=== PATIENT | male | born 1945 | race Two or more races ===

== ENCOUNTER 2018-05-30 15:55 | Emergency (ER) | payer OTHER ==
[~2018-05-30] VITALS: Ht 167.6 cm; Wt 104.3 kg
[2018-05-30] MEDS ORDERED: GLIPIZIDE ER5 MG (16:07)
[2018-05-30] MEDS ORDERED: METFORMIN HCL500 MG PO (16:07)
== END 2018-05-30 23:31 | disposition home or self-care (01) ==
LOC: ER 15:55
DX: J44.9 Chronic obstructive pulmonary disease, unspecified (principal); R06.02 Shortness of breath; J11.1 Influenza due to unidentified influenza virus with other respiratory manifestations